=== PATIENT | female | born 1965 | race Caucasian/White ===

== ENCOUNTER → 2025-04-24 | Outpatient (CLI) | payer MEDICAID, SELFPAY ==
--- NOTE | 2025-04-24 14:15 | XR_ITS ---
Examination: Screening digital mammography, bilateral Computer aided detection 3-D breast Tomosynthesis, bilateral Date and time of exam: April 24, 2025 1417 hours No priors Indication: Screening Technique: Nonmagnified MLO, CC views of the breasts to been obtained, reconstructed from 3-D Tomosynthesis images. R2 computer aided detection program utilized for evaluation of suspicious masses and/or abnormal calcifications. 3-D Tomosynthesis images obtained. Findings: Scattered areas of fibroglandular density. 13 mm suspicious nodule 12:00 position left breast Satellite circumscribed 4 mm nodule 5 mm nodule 12:00 position right breast Impression: BI-RADS Category 0: Incomplete: Need additional imaging evaluation Recommend follow-up spot compression views of 30 mm suspicious nodule 12:00 position left breast Recommend follow-up spot tomographic views of 5 mm nodule 12:00 position right breast Recommend bilateral breast sonography follow-up to complete the workup.
== END | disposition home or self-care (01) ==
PROVIDERS: Referring Provider Family Medicine; Visit Provider Family Medicine
DX: Z12.31 Encounter for screening mammogram for malignant neoplasm of breast (principal); N63.25 Unspecified lump in the left breast, overlapping quadrants; N63.15 Unspecified lump in the right breast, overlapping quadrants
CPT/HCPCS: 77063; 77067

== ENCOUNTER → 2025-06-21 | Outpatient (CLI) | payer MEDICAID, SELFPAY ==
--- NOTE | 2025-06-21 10:30 | XR_ITS ---
Examination: Breast ultrasound complete, bilateral Date and time of exam: June 21, 2025, 1049 hours INDICATIONS: Mammogram April 24, 2025 13 mm nodule 12:00 position left breast and satellite 4 mm nodule Technique: Real-time grayscale ultrasonographic imaging bilateral breasts, including all 4 quadrants as well as nipple retroareolar and axillary regions. Findings: Sonographic images right breast 9:00 probable intramammary benign lymph node 5 x 5 mm Sonographic images left breast No cystic or solid mass 11 mm left axillary lymph node IMPRESSION: BI-RADS Category 3: Probably benign findings Recommend 1 additional 6 month right breast sonogram follow-up to document stability of 9:00 nodule described above
--- NOTE | 2025-06-21 11:30 | XR_ITS ---
Examination: Diagnostic digital mammography, bilateral Computer aided detection 3-D breast Tomosynthesis, bilateral Date and time of exam: 06/21/2025, 11:31 AM Comparisons: 04/24/2025 Indications:Follow-up evaluation of bilateral nodules in the o'clock on prior screening exam. Technique: Nonmagnified MLO, CC views of the breasts to been obtained, reconstructed from 3-D Tomosynthesis images. R2 computer aided detection program utilized for evaluation of suspicious masses and/or abnormal calcifications. 3-D Tomosynthesis images obtained. Findings: There are scattered areas of fibroglandular density. 13 mm mass with indistinct borders persists 6:00 left breast No evidence of abnormal masses or suspicious calcifications. Impression: Persistent bilateral masses seen on mammography as described above. No definite sonographic correlate. Left breast mass with indistinct borders. Recommend repeat bilateral ultrasound evaluation of the 6:00 regions with radiologist in attendance. BI-RADS category 0: Incomplete assessment; need additional imaging evaluation
== END | disposition home or self-care (01) ==
LOC: CDIM 10:24
PROVIDERS: PCP Family Medicine; Referring Provider Family Medicine; Visit Provider Family Medicine
DX: R92.8 Other abnormal and inconclusive findings on diagnostic imaging of breast (principal); N63.15 Unspecified lump in the right breast, overlapping quadrants
CPT/HCPCS: 76641; 77062; 77066; G0279